=== PATIENT | female | born 1940 | race Caucasian/White ===

== ENCOUNTER 2021-01-02 15:45 | Emergency (ER) | payer MEDICARE, OTHER ==
[~2021-01-02] VITALS: Ht 149.9 cm; Wt 69.6 kg
--- NOTE | 2021-01-02 16:00 | NUR ---
1600: PT NO ANSWER. IN BATHROOM
[2021-01-02 16:43] LABS: BASOPHILS % (AUTO) 1 % (0-1); EOSINOPHILS % (AUTO) 2 % (1-7); LYMPHOCYTES % (AUTO) 27 % (22-44); MEAN CORPUSCULAR HEMOGLOBIN 30.3 pg (27.0-34.8); MEAN CORPUSCULAR HGB CONC 33.4 g/dL (32.4-35.8); MEAN PLATELET VOLUME 7.8 fL (7.4-10.4); MONOCYTES % (AUTO) 11 % (2-9); NEUTROPHILS % (AUTO) 59 % (42-75); PLATELET COUNT 230 x10^3/uL (130-400); RED BLOOD COUNT 4.56 x10^6/uL (3.82-5.3); RED CELL DISTRIBUTION WIDTH 13.7 % (9.6-15.2)
[2021-01-02 16:45] LABS: MD NO
[2021-01-02 16:50] LABS: ALBUMIN 3.9 g/dL (3.4-5.0); ANION GAP 8 mmol/L (5-15); CALCIUM 8.6 mg/dL (8.5-10.1); CHLORIDE 108 mmol/L (98-107)
[2021-01-02 16:54] LABS: ALANINE AMINOTRANSFERASE 27 U/L (12-78); ALKALINE PHOSPHATASE 74 U/L (45-117); BILIRUBIN,TOTAL 0.3 mg/dL (0.2-1.0); CREATININE 0.99 mg/dL (0.55-1.02); TOTAL PROTEIN 7.4 g/dL (6.4-8.2)
[2021-01-02 16:59] LABS: MICROSCOPIC AUTO
--- NOTE | 2021-01-02 17:48 | NUR ---
teaching aide: pt from lobby to room 21
--- NOTE | 2021-01-02 19:08 | NUR ---
pt in bed with no signs or symptoms of acute dsitress noted respirations even and unlabored md at bedside to assess.
[2021-01-02 19:09] VITALS: BP 157/58
== END 2021-01-02 19:32 | disposition home or self-care (01) ==
LOC: ED 19:20
DX: I10 Essential (primary) hypertension (principal); R30.0 Dysuria
CPT/HCPCS: 36415; 80053; 81001; 85025; 87086; 99283

== ENCOUNTER 2021-04-23 10:55 | Emergency (ER) | payer MEDICARE, OTHER ==
[2021-04-23 11:31] VITALS: BP 107/70
--- NOTE | 2021-04-23 11:52 | NUR ---
ERPA AT BEDSIDE FOR EVALUATION.
--- NOTE | 2021-04-23 11:59 | NUR ---
PATIENT WHEELED BACK FROM LOBBY WITH CHIEF C/O BILATERAL LOWER BACK PAIN X2-3 DAYS. PAIN IS NOW RADIATING DOWN BOTH LEGS AND PATIENT C/O HEADACHE AND CHILLS. HISTORY OF BACK PROBLEMS PER PATIENT. WARM BLANKET PROVIDED FOR COMFORT. DAUGHTER AT BEDSIDE AND CALL LIGHT WITHIN REACH.
[2021-04-23] MEDS ORDERED: DIAZEPAM 5 MG TABLET PO ONE (12:00)
[2021-04-23] MEDS ORDERED: KETOROLAC 30 MG/1 ML IM ONE (12:00)
[2021-04-23] MEDS ORDERED: DIAZEPAM 5 MG TABLET ONE (12:07)
[2021-04-23] MEDS ORDERED: KETOROLAC 30 MG/1 ML ONE (12:07)
[2021-04-23 12:34] LABS: BASOPHILS % (AUTO) 0 % (0-1); EOSINOPHILS % (AUTO) 0 % (1-7); LYMPHOCYTES % (AUTO) 16 % (22-44); MEAN CORPUSCULAR HEMOGLOBIN 30.6 pg (27.0-34.8); MEAN PLATELET VOLUME 7.6 fL (7.4-10.4); MONOCYTES % (AUTO) 11 % (2-9); NEUTROPHILS % (AUTO) 72 % (42-75); PLATELET COUNT 169 x10^3/uL (130-400); RED BLOOD COUNT 4.29 x10^6/uL (3.82-5.3); RED CELL DISTRIBUTION WIDTH 14.2 % (9.6-15.2)
[2021-04-23 12:42] LABS: ALBUMIN 3.6 g/dL (3.4-5.0); ANION GAP 7 mmol/L (5-15); CALCIUM 8.7 mg/dL (8.5-10.1); CHLORIDE 100 mmol/L (98-107); CREATININE 0.67 mg/dL (0.55-1.02)
--- NOTE | 2021-04-23 12:42 | NUR ---
PATIENT AMBULATED TO BATHROOM FOR URINE SAMPLE WITH STEADY GAIT.
--- NOTE | 2021-04-23 12:48 | NUR ---
PATIENT AMBULATED BACK TO [facility] WITH STEADY GAIT, URINE COLLECTED AND SENT TO LAB. CALL LIGHT WITHIN REACH.
--- NOTE | 2021-04-23 13:14 | NUR ---
PATIENT TO IMAGING.
[2021-04-23 13:34] LABS: MICROSCOPIC NOT IND
--- NOTE | 2021-04-23 13:45 | NUR ---
PATIENT RESTING IN GURNEY WITH EYES CLOSED, RESP EVEN AND UNLABORED, DAUGHTER AT BEDSIDE, CALL LIGHT WITHIN REACH. PATIENT UP FOR RECHECK.
--- NOTE | 2021-04-23 14:16 | NUR ---
Patient given discharge instructions and prescription and they have confirmed that they understand the instructions. Patient ambulatory with steady gait. NAD, all questions answered appropriately, denies additional needs at this time. No personal belongings left in room after discharge.
== END 2021-04-23 14:17 | disposition home or self-care (01) ==
LOC: ED 14:05
DX: S39.012A Strain of muscle, fascia and tendon of lower back, initial encounter (principal); I10 Essential (primary) hypertension; M19.90 Unspecified osteoarthritis, unspecified site; X58.XXXA Exposure to other specified factors, initial encounter; Y93.89 Activity, other specified; Y92.89 Other specified places as the place of occurrence of the external cause; Y99.8 Other external cause status
CPT/HCPCS: 36415; 72072; 72110; 80048; 81003; 82040; 85025; 96372; 99284; J1885